=== PATIENT | male | born 1950 | race Caucasian/White ===

== ENCOUNTER 2020-08-12 05:24 | Observation (INO) | payer MEDICARE ==
[~2020-08-12] VITALS: Ht 188 cm; Wt 116.1 kg
[~2020-08-12 05:24] MED LIST: ASPIRIN81 MG PO; ATORVASTATIN CA40 MG PO; AVASTIN25 MG/1 ML; IMURAN50 MG PO; METOPROLOL SUCC50 MG PO; MULTI-VITAMIN1 EACH; MYRBETRIQ50 MG PO; SYNTHROID125 MCG PO; VITAMIN D3 COM1 EACH PO
[2020-08-12] MEDS ORDERED: CEFAZOLIN SOD 1 GM/NS 50ML 100 ML IV ONE (06:00)
[2020-08-12] MEDS ORDERED: SODIUM CHLORIDE 0.9% 500ML 500 ML ONE (06:22)
[2020-08-12] MEDS ORDERED: VANCOMYCIN HCL 1,000 MG ONE (06:22)
[2020-08-12] MEDS ORDERED: LIDOCAINE 1% W/EPINEPHRINE 20 ML VIAL ONE (06:22)
[2020-08-12] MEDS ORDERED: TRANEXAMIC ACID 1,000 MG/10 ML ML ONE (06:23)
[2020-08-12 06:39] LABS: BLOOD UREA NITROGEN 8 mg/dL (7-26); BUN/CREATININE RATIO 10 (6-25); CALCIUM 9.3 mg/dL (8.4-10.2); CARBON DIOXIDE 28 mmol/L (22-29); CHLORIDE 107 mmol/L (98-107); CREATININE, SERUM 0.79 mg/dL (0.72-1.25); EST GLOMERULAR FILTRATION RATE > 60 ML/MIN (60-); GLUCOSE 110 mg/dL (74-118); SODIUM 141 mmol/L (136-145)
[2020-08-12] MEDS ORDERED: ACETAMINOPHEN 650 MG SUPP PR PRN (08:30)
[2020-08-12] MEDS ORDERED: ZOLPIDEM TARTRATE 5 MG TAB PO PRN (08:30)
[2020-08-12] MEDS ORDERED: HYDROCODONE/APAP 7.5MG-325MG 1 EA TAB PO PRN (08:30)
[2020-08-12] MEDS ORDERED: DOCUSATE SODIUM 100 MG CAP PO PRN (08:30)
[2020-08-12] MEDS ORDERED: KETOROLAC TROMETHAMINE 30 MG/ML VIAL IV PRN (08:30)
[2020-08-12] MEDS ORDERED: DIPHENHYDRAMINE HCL INJ 50 MG/ML VIAL IV PRN (08:30)
[2020-08-12] MEDS ORDERED: ONDANSETRON HCL INJ 2MG/ML 2ML 2 MG/ML VIAL IV PRN (08:30)
[2020-08-12] MEDS ORDERED: FENTANYL CITRATE/PF 100MCG/2 ML INJ ONE ×2 (08:47→11:29)
--- NOTE | 2020-08-12 08:59 | Operative Report ---
DATE OF PROCEDURE: 08/12/2020 SURGEON: Bishop Carpenter MD AIX ARCHITECT: Zack Gallegos PA-C PREOPERATIVE DIAGNOSIS: Osteoarthritis, left shoulder. POSTOPERATIVE DIAGNOSIS: Osteoarthritis, left shoulder. PROCEDURE: Left shoulder hemiarthroplasty. INDICATIONS: The patient is a 70-year-old gentleman with advanced osteoarthritis of his left shoulder. The findings and options have been discussed. We plan on a left shoulder hemiarthroplasty. The risks and benefits of the procedure have been explained. Realistic expectations have been stressed. All of his questions have been answered. He states he understands and wishes to proceed. PROCEDURE IN DETAIL: The patient was brought to the operating room and placed under general anesthetic. He received a regional block, prophylactic antibiotics and tranexamic acid in the holding area. He was positioned in the beach chair position on the shoulder table. His left upper extremity was prepped and draped in a sterile manner. A 10 mL of 2% lidocaine with epinephrine was injected into the axillary fold. The incision was made. The deltopectoral interval was identified. Care was taken to avoid injury to the cephalic vein. This was preserved throughout the case. The proximal 1 cm of the pectoralis was released. The short head of the biceps was identified and a deep self-retaining Cleary Foreman retractor was placed. The inferior leash of vessels was ligated. The subscapularis/capsular complex was then released approximately 1 cm medial to the lesser tuberosity. This was carried up into the rotator interval. The biceps tendon appeared to be intact but was severely frayed. There was notable synovitis that extended down into the bicipital groove and into the sheath. The synovitis was excised. Bone fragment was noted to be in at the tendon sheath. The shoulder was gradually brought out into external rotation to expose the humeral head. Complete loss of articular cartilage was noted. A curved osteotome was used to remove the anterior and inferior osteophytes and identify anatomic landmarks. An oscillating saw was used to resect the humeral head. This was noted to be 52 mm in diameter. A taper pin reamer was then used to establish entry to the humeral canal. This was gently broached up to 14 mm. DePuy global 14 mm stem was then broached and impacted. Trial reductions were performed. I elected to use a 52 mm x 18 mm humeral head. This had good fill of the joint and stability in an AP and lateral direction. The trial implants were removed. The shoulder was thoroughly irrigated with sterile saline. Once again, the rotator cuff tendon integrity was inspected and noted to be intact. The stem was seated. A 52 mm x 18 mm humeral head was impacted into place. A final reduction was performed. The hip was further irrigated. Care was taken to repair the subscapularis capsule complex. This was done with interrupted #1 Ethibond and carried up into the rotator interval. Nice stability was felt to be obtained. A 500 mg of vancomycin powder was then sprinkled into the wound. The retractor was removed. The cephalic vein remained intact. The skin was closed with subcuticular Vicryl and shon. A sterile bandage was applied. He was extubated and transported to the recovery room in stable condition. Estimated blood loss was 50 mL. At the end of the procedure, all needle and sponge counts were correct. Bishop Carpenter MD DR/CHIQUITA /[id number]
--- OUTSIDE RECORDS SUMMARY | 2020-08-12 09:16 | XMS REPORT | Clinical Summary ---
Author Author [facility] Organization [facility] Address Unknown Phone Unavailable Care Team Providers Care Business Rules Analyst Name Role Phone Ganga Irvin DO PCP [phone] Allergies No Known Active Allergies Medications End Date Status Medication Sig Dispensed Refills Start Date Active azaTHIOprine (IMURAN) 100 Take 100 mg 0 mg tablet by mouth daily. Active levothyroxine (SYNTHROID) Take 125 mcg 0 125 mcg tablet by mouth daily. Active mirabegron (Myrbetriq) 50 Take 50 mg by 0 mg tablet extended mouth daily. release 24 hr 07/03/2021 Active atorvastatin (LIPITOR) 40 Take 1 tablet 90 tablet 2 mg tabletIndications: (40 mg total) 0 Mixed hyperlipidemia by mouth daily. Active metoprolol succinate XL Take 1 tablet 90 tablet 2 (TOPROL-XL) 50 mg 24 hr (50 mg total) 0 tablet by mouth daily. 11/29/2019 Discontinued (Reorder) atorvastatin (LIPITOR) 20 Take 20 mg by 0 MG tablet mouth daily. Default OP ins 11/29/2019 Discontinued (Reorder) metoprolol succinate XL Take 50 mg by 0 (TOPROL-XL) 50 mg 24 hr mouth daily. tablet 11/29/2019 Discontinued (Reorder) atorvastatin (LIPITOR) 20 Take 1 tablet 90 tablet 2 MG tablet (20 mg total) 0 by mouth daily. Default OP ins 07/03/2020 Discontinued (Reorder) metoprolol succinate XL Take 1 tablet 90 tablet 2 (TOPROL-XL) 50 mg 24 hr (50 mg total) 0 tablet by mouth daily. 07/03/2020 Discontinued atorvastatin (LIPITOR) 20 Take 1 tablet 90 tablet 2 MG tablet (20 mg total) 0 by mouth daily. Default OP ins Active Problems Problem Noted Date Essential hypertension 07/04/2019 Mixed hyperlipidemia 07/04/2019 Type 2 diabetes mellitus without complication, withou t long-term current 07/04/2019 use of insulin Heart murmur 07/04/2019 Encounters Care Team Description Date Type Specialty Andrzej Mancia MD Essential hypertension (Primary Dx); Heart murmur; Type 2 diabetes mellitus without complication, without long-term current use of insulin (HCC); Mixed hyperlipidemia; Preoperative cardiovascular examination left shoulder surgery 07/03/2020 Office Visit Cardiology Anahi Bueno MA Med Refill 07/03/2020 Refill Cardiology 07/03/2020 Travel Anahi Bueno MA Results 01/15/2020 Telephone Cardiology Anahi Bueno MA Results 01/15/2020 Telephone Cardiology Andrzej Mancia MD call back 01/08/2020 Telephone Cardiology Anahi Bueno MA Results 01/08/2020 Telephone Cardiology Anahi Bueno MA Heart murmur (Primary Dx); Type 2 diabetes mellitus without complication, without long-term current use of insulin (HCC); Mixed hyperlipidemia; Acquired hypothyroidism 01/03/2020 Orders Only Cardiology Andrzej Mancia MD Heart murmur (Primary Dx); Essential hypertension; Type 2 diabetes mellitus without complication, without long-term current use of insulin (HCC); Mixed hyperlipidemia; Acquired hypothyroidism 01/02/2020 Office Visit Cardiology 01/02/2020 Anahi Hathaway MA Heart murmur (Primary Dx); Nonrheumatic aortic valve stenosis; Essential hypertension; Stenosis of carotid artery, unspecified laterality 01/01/2020 Orders Only Cardiology Anahi Bueno MA Med Refill 11/29/2019 Refill Cardiology Sharmin Lopez MA Med Refill 11/29/2019 Telephone Cardiology after 08/12/2019 Surgical History Surgery Date Site/Laterality Comments HEMORRHOID SURGERY 09/13/1979 - 09/12/1980 RELEASE, CARPAL TUNNEL 09/13/1978 - Bilateral 09/12/1979 BRAIN TUMOR EXCISION 09/13/2002 - Right 09/12/2003 REPLACEMENT TOTAL KNEE 09/13/2002 - BILATERAL 09/12/2003 STENT 09/13/2005 - prox lad, artery 09/12/2006 GASTRIC BYPASS 09/13/2013 - 09/12/2014 COLONOSCOPY 09/13/2015 - 09/12/2016 EGD, INTRAOPERATIVE 09/13/2017 - 09/12/2018 NASAL/SINUS ENDOSCOPY Medical History Medical History Date Comments Sleep apnea, obstructive Type 2 diabetes mellitus (HCC) Hypertension Hyperlipidemia Family History Medical History Relation Name Comments Heart attack Brother 60's Heart attack Father Cancer Mother Relation Name Status Comments Brother Father Mother Social History Date Tobacco Use Types Packs/Day Years Used Former Smoker Smokeless Tobacco: Never Used Tobacco Cessation: Counseling Given: Yes Drinks/Week oz/Week Comments Alcohol Use rare Yes Sex Assigned at Date Recorded Male 12/26/2019 3:11 PM CDT Last Filed Vital Signs Reading Time Taken Comments Vital Sign 138/79 07/03/2020 1:01 PM CDT Blood Pressure 64 07/03/2020 1:01 PM CDT Pulse - - Temperature - - Respiratory Rate - - Oxygen Saturation - - Inhaled Oxygen Concentration 117 kg (258 lb) 07/03/2020 1:01 PM CDT Weight 182.9 cm (6') 07/03/2020 1:01 PM CDT Height 34.99 07/03/2020 1:01 PM CDT Body Mass Index Plan of Treatment Care Team Description Date [place] [id number] [address] [phone] 01/01/2021 Office Visit Cardiology Health Maintenance Due Date Last Done Comments DIABETES: RETINAL EYE 01/23/1958 EXAM DIABETIC FOOT EXAM 01/23/1958 COLONOSCOPY SCREENING 01/23/1998 SHINGLES VACCINES (#1) 01/23/1998 65+ PNEUMOCOCCAL VACCINE 01/23/2013 (1 of 1 - PPSV23) INFLUENZA VACCINE Completed 06/26/2020, 12/14/2019, 11/16/2019, Additional history exists Procedures Comments Procedure Name Priority Date/Time Associated Diag nosis ECG 12-LEAD Routine 07/03/2020 Essential hyper tension 1:07 PM CDT C-PEPTIDE, LC/MS/MS AND Routine 01/04/2020 IR SCORE 8:17 AM CDT INSULIN, INTACT, LC/MS/MS Routine 01/04/2020 8:17 AM CDT THYROID PANEL WITH TSH Routine 01/04/2020 8:17 AM CDT CARDIO IQ(R) ADVANCED Routine 01/04/2020 Mixed hy perlipidemia LIPID PANEL AND 8:17 AM CDT INFLAMMATION PANEL US CAROTID DUPLEX Routine 01/02/2020 Stenosis of carotid BILATERAL 1:47 PM CDT artery, unspecified laterality TTE COMPLETE, WO Routine 01/02/2020 Heart murmur CONTRAST, W DOPPLER 1:30 PM CDT Nonrheumatic aort ic valve (89471) stenosis Essential hypertension ECG 12-LEAD Routine 01/02/2020 Heart murmur 1:21 PM CDT after 08/12/2019 Results * ECG 12 lead (07/03/2020 1:07 PM CDT) Only the most recent of 2 results within the time period is included. Ventricular 62 [facility] rate Atrial rate 62 [facility] NH interval 190 [facility] QRSD interval 102 [facility] QT interval 396 [facility] QTC interval 401 [facility] P axis 1 43 [facility] QRS axis 1 16 [facility] T wave axis 40 [facility] EKG impression Normal sinus rhythm-Normal [facility] ECG-In automated comparison with ECG of 02-JAN-2020 13:21,-No significant change was found- Specimen Narrative Performed At This result has an attachment that is n ot available. Performing Organization Address City/State/ZIP Code P jake Number [facility] MUSE [address] [place] [address] * C-peptide, LC/MS/MS and IR score (01/04/2020 8:17 AM CDT) C-peptide 1.77 0.68 - 2.16 ng/mL [facility] Insulin 29 < OR = 66 [facility] resistance Comment: DIAGNOSTICS/RACQUEL score Insulin Sensitive < 33; [facility] Impaired Insulin Sensitivity 33-66; Insulin Resistant >66 A score below 33 is optimal. The insulin resistance score correlates with steady state glucose levels achieved during an insulin suppression test, a standard research test for insulin resistance. The score is based on insulin and C-peptide results (João F, Isidro D, Jorge FIGUEROA, et al. Insulin resistance probability scores for apparently healthy individuals. J Endocr Soc. In press). For additional information, please refer to http://imbookin ([place]).CityAds Media/faq/QPX182 (This link is being provided for informational/educational purposes only.) This test was developed and its analytical performance characteristics have been determined by [facility]. It has not been cleared or approved by FDA. This assay has been validated pursuant to the CLIA regulations and is used for clinical purposes. Specimen Narrative Performed At FASTING:YES [facility] FASTING: YES Resulting Agency Comment Performing Organization Information: Site ID: [id number] Name: [facility], Address: [address] [place] [id number] Director: Deepa Glover MD,PhD,KOURTNEY Performing Organization Address City/State/ZIP Code P jake Number [facility]/SUN [address] [place] [address], [place] [phone] [facility] [id number] * INSULIN, INTACT, LC/MS/MS (01/04/2020 8:17 AM CDT) [facility] Signature Insulin,intact, 8 < OR = 16 uIU/mL [facility] lc/ms/ms Comment: DIAGNOSTICS/RACQUEL Insulin concentration can be [facility] converted to pmol/L by applying the conversion factor: 1 uIU/mL = 5.97 pmol/L For additional information, please refer to http://education.CityA[employer] Media/faq/ZWO975 (This link is being provided for informational/educational purposes only.) This test was developed and its analytical performance characteristics have been determined by [facility]. It has not been cleared or approved by [facility]. This assay has been validated pursuant to the CLIA regulations and is used for clinical purposes. Specimen Narrative Performed At FASTING:YES [facility] FASTING: YES Resulting Agency Comment Performing Organization Information: Site ID: [id number] Name: [facility], Address: [address] [place] [id number] Director: Deepa Glover MD,PhD,KOURTNEY Performing Organization Address City/State/ZIP Code P jake Number [facility]SUN [id number] [address] [phone] [facility] [id number] * Cardio IQ(R) advanced lipid panel and inflammation panel (01/04/2020 8:17 AM CDT) Cholesterol, 174 <200 mg/dL [facility] total [facility] HDL cholesterol 62 > OR = 40 mg/dL [facility] Triglycerides 157 (H) <150 mg/dL [facility] LDL cholesterol 87 <100 mg/dL (calc) [facility] calculated Comment: [facility]NOSTICS/RACQUEL Desirable range <100 mg/dL for [facility] primary prevention; <70 mg/dL for patients with CHD or diabetic patients with > or = 2 CHD risk factors. LDL-C is now calculated using the Patrice calculation, which is a validated novel method providing better accuracy than the Friedewald equation in the estimation of LDL-C. Ilia DEL VALLE et al. FREDY. 2013;310(19): 9496-7724 For additional information, please refer to http://education.NexMed.com/faq/FSY099 (This link is being provided for informational/educational purposes only.) Cholesterol/HDL 2.8 <5.0 calc [facility] ratio DIAGNOSTICS/RACQUEL [facility] Non-HDL 112 <130 mg/dL (calc) [facility] cholesterol Comment: DIAGNOSTICS/RACQUEL For patients with diabetes [facility] plus 1 major ASCVD risk factor, treating to a non-HDL-C goal of <100 mg/dL (LDL-C of <70 mg/dL) is considered a therapeutic option. LDL particle 1,159 (H) <1,138 nmol/L [facility] number Comment: DIAGNOSTICS/RACQUEL Risk: Optimal <1138; Moderate [facility] 5916-6967; High >1409 LDL small 189 (H) <142 nmol/L [facility] Comment: [facility]NOSTICS/RACQUEL Risk: Optimal <142; Moderate [facility] 142-219; High >219 LDL medium 239 (H) <215 nmol/L [facility] Comment: [facility]STICS/RACQUEL Risk: Optimal <215; Moderate [facility] 215-301; High >301 HDL large 5,399 (L) >6,729 nmol/L [facility] Comment: [facility]NOSTICS/RACQUEL Risk: Optimal >6729; Moderate [facility] 0928-2618; High <5353 LDL density B (A) A Pattern [facility] pattern Comment: [facility]QUEL Risk: Optimal Pattern A; High [facility] Pattern B LDL peak size 215.6 (L) >222.9 Angstrom [facility] Comment: [facility]AGNOSTICS/RACQUEL Risk: Optimal >222.9; Moderate [facility] 222.9-217.4; High <217.4 Adult cardiovascular event risk category cut points (optimal, moderate, high) are based on an adult [place] reference population plus two large cohort study populations. Association between lipoprotein subfractions and cardiovascular events is based on Jeevanu et al. ATVB. 2009;29:1975. For additional information, please refer to http://education.NexMed.com/faq/NWV241 (This link is being provided for informational/educational purposes only.) This test was developed and its analytical performance characteristics have been determined by [facility]. It has not been cleared or approved by FDA. This assay has been validated pursuant to the CLIA regulations and is used for clinical purposes. Apolipoprotein 81 mg/dL [facility] B Comment: [facility]NOSTICS/RACQUEL Reference Range: <90 [facility] Risk Category: Optimal <90 Moderate 90-119 High > or = 120 Cardiovascular event risk category cut points (optimal, moderate, high) are based on National Lipid Association recommendations - Clarisa TA et al. J of Clin Lipid. 2015;9:129-169 and Guadalupe ALATORRE et al. Endocr Pract. 2017;23(Suppl 2):1-87. Lipoprotein (a) 48 <75 nmol/L [facility] Comment: DIAGNOSTICS/RACQUEL Risk: Optimal < 75 nmol/L; [facility] Moderate 75-125 nmol/L; High > 125 nmol/L Cardiovascular event risk category cut points (optimal, moderate, high) are based on Carina LegerJACC 2017;69:692-711. CRP, high 0.7 mg/L [facility] sensitivity Comment: DIAGNOSTICS/RACQUEL Optimal <1.0 [facility] Guadalupe ALATORRE et al. Endocr Pract.2017;23(Suppl 2):1-87. For Ages > 17 Years: hs-CRP mg/L Risk According to AHA/CDC Guidelines ------ <1.0 Lower Relative Cardiovascular Risk. 1.0-3.0 Average Relative Cardiovascular Risk 3.1-10.0 Higher Relative Cardiovascular Risk. Consider retesting in 1 to 2 weeks to exclude a benign transient elevation in the baseline CRP value secondary to infection or inflammation. >10.0 Persistent elevations upon retesting, may be associated with infection and inflammation. Lp-PLA2 98 <=123 nmol/min/mL [facility] Comment: DIAGNOSTICS/RACQUEL Risk: Optimal <=123 [facility] nmol/min/mL; High >123 nmol/min/mL. This test was developed and its analytical performance characteristics have been determined by [facility]. It has not been cleared or approved by FDA. This assay has been validated pursuant to the CLIA regulations and is used for clinical purposes. Specimen Narrative Performed At FASTING:YES [facility] FASTING: YES Resulting Agency Comment Performing Organization Information: Site ID: [id number] Name: [facility], Address: [address] [place] [phone] Director: Deepa Glover MD,PhD,KOURTNEY Performing Organization Address City/[facility] Code P jake Number [facility]/SUN[address] [phone] [facility] [address] * Thyroid Panel With TSH (01/04/2020 8:17 AM CDT) T3 uptake 26 22 - 35 % [facility] T4 8.8 4.9 - 10.5 mcg/dL [facility] Free T4 index 2.3 1.4 - 3.8 [facility] [place] TSH 1.31 0.40 - 4.50 mIU/L [employer] [facility] [employer] [facility] Specimen Narrative Performed At FASTING:YES [facility] FASTING: YES Resulting Agency Comment Performing Organization Information: Site ID: [id number] Name: [facility] Address: [address] [place] [phone] Director: Flynn Handley Performing Organization Address City/[facility]/ZIP Code P jake Number [facility] [address] [phone] * carotid duplex (01/02/2020 1:47 PM CDT) [facility] Signature L CCA Prox 29.03 cm/s [facility] L CCA Prox 119.55 cm/s [facility] R CCA Mid 18.14 cm/s [facility] R CCA Mid 69.76 cm/s [facility] L CCA Mid 24.18 cm/s [facility] L CCA Mid 102.32 cm/s [facility] L ECA Prox 18.89 cm/s [facility] L ECA Prox 121.93 cm/s [facility] R ECA Prox 17.13 cm/s [facility] Rt ECA Prox PSV 104.35 cm/s [facility] L ICA Prox 20.93 cm/s [facility] L ICA Prox 68.37 cm/s [facility] R ICA Prox 23.36 cm/s [facility] R ICA Prox 73.20 cm/s [facility] L ICA/CCA Ratio 0.71 [facility] R ICA/CCA Ratio 0.93 [facility] R CCA Prox 18.14 cm/s [facility] R CCA Prox 94.88 cm/s [facility] R Car Bulb 55.81 cm/s [facility] R CCA Dist 20.93 cm/s [facility] R CCA Dist 75.34 cm/s [facility] L ICA Dist 20.93 cm/s [facility] L ICA DIST 54.42 cm/s [facility] LT IC MID EDV 22.32 cm/s [facility] Lt ICA MID PSV 64.18 cm/s [facility] R ICA Dist 29.77 cm/s [facility] R ICA Mid 16.12 cm/s [facility] Rt ICA MID PSV 48.37 cm/s [facility] Lt IC/CC 71.19 cm/s [facility] L Car Bulb 15.35 cm/s [facility] L Car Bulb 85.11 cm/s [facility] R Car Bulb 12.56 cm/s [facility] L CCA Dist 26.05 cm/s [facility] L CCA Dist 111.62 cm/s [facility] L ICA Mid 22.32 cm/s [facility] L ICA Mid 64.18 cm/s [facility] Rt ICA Distal 29.77 cm/s [facility] EDV R ICA Dist 88.06 cm/s [facility] R ICA Mid 48.37 cm/s [facility] L Vert Art 14.16 cm/s [facility] L Vert Art 44.65 cm/s [facility] R Vert Art 65.73 cm/s [facility] Rt Vertebral 65.73 [facility] Artery RI Pt Size 182.88 [facility] Pt Wt 112.94 [facility] L Sub Art 0.00 cm/s [facility] R ECA Prox 104.00 cm/s [facility] L Sub Art 132 cm/s [facility] R Sub Art 76.00 cm/s [facility] Specimen Narrative Performed At [facility] There is mild atherosclerotic plaque noted throughout both carotid arteries without any hemodynamic compro mise bilaterally. Antegrade flow bilateral vertebral a rteries. Performing Organization Address City/State/ZIP Code P jake Number [facility] [address] [place] [address] * Transthoracic Echocardiogram Complete, (w Contrast, Strain and 3D if needed) (01/02/2020 1:30 PM CDT) Ao Root 3.41 cm [facility] Diameter AoV Area, Vmax 1.59 cm2 [facility] AoV Area, VTI 1.51 cm2 [facility] AoV Mean PG 22.08 mmHg [facility] AoV Peak PG 35.01 mmHg [facility] AoV Vmax 3.08 m/s [facility] AoV VTI 0.76 m [facility] IVS,d 1.31 cm [facility] Left Atrium 4.44 cm [facility] Dimension Anterior LV,d 5.17 cm [facility] LV EF,2D 72.67 % [facility] LV,s 3.35 cm [facility] LVOT Diam,S 2.36 cm [facility] LVOT Vmax 1.12 m/s [facility] LVOT VTI 0.25 m [facility] LVPWD,d 1.25 cm [facility] PV Mean Grad 2.09 mmHg [facility] PV Pk Grad 2.90 mmHg [facility] PV VMAX 0.85 m/s [facility] PV VTI 0.22 m [facility] RVOT Vmax 0.67 m/s [facility] RVSP (TR) 31.03 mmHg [facility] TR Vpeak 2.55 mm/s [facility] MV E A ratio 0.76 [facility] TR pk grad 26 mmHg [facility] PV Vmn 0.72 [facility] MR Vmax 4.42 m/s [facility] E wave 311.41 msec [facility] decelartion time MV Peak A Aaron 0.93 m/s [facility] MV Peak E Aaron 0.71 m/s [facility] MV stenosis 90.31 ms [facility] pressure 1/2 time AV LVOT peak 5.05 mmHg [facility] gradient Ascending aorta 3.47 cm [facility] RVSP 31.03 mmHg [facility] Ao Root 3.41 cm [facility] Diameter MV mean 1.73 mmHg [facility] gradient LV SYS VOL 45.87 ml [facility] LV [place] VOL 127.59 ml [facility] LV SI Teich 2D 34.93 ml/m2 [facility] LV SV Teich 2D 81.73 ml [facility] LVOT SI 52.74 ml/m2 [facility] MR peak grad 4.69 mmHg [facility] MV Vmax 1.08 m [facility] MV VTI Tips 0.37 m [facility] RVOT pk grad 1.79 mmHg [facility] AoV Vmn 2.30 [facility] LVOT Vmn 0.77 [facility] Pt Size 182.88 [facility] Pt Wt 112.94 [facility] LVOT mean grad 2.62 mmHg [facility] RVOT mean grad 1.01 mmHg [facility] RVOT Vmn 0.49 m/s [facility] RVOT VTI 0.15 m [facility] LV SI Cube 2D 42.83 ml/m2 [facility] LV SV Cube 2D 100.23 ml [facility] LV vol s cube 37.69 ml [facility] 2D MV Decel slope 2.27 m/s2 [facility] LA Vol MOD A4C 80.68 ml [facility] Velocity Ratio 0.36 m/s [facility] (V1/V2) EF 64.05 % [facility] MV valve area p 2.44 cm2 [facility] 1/2 method E/A ratio 0.76 [facility] LVOT area 4.37 cm2 [facility] Specimen Narrative Performed At [facility] Left Ventricular ejection fraction i s 55 - 60%. Left ventricular systolic function i s normal. There is mild left ventricular myrtle ntric hypertrophy. Spectral Doppler shows impaired rela xation pattern of left ventricular diastolic filling. Left atrium size is mildly dilated. Moderate aortic valve stenosis. The aortic valve mean gradient is 24.65 mmHg. Mild tricuspid valve regurgitation. RVSP is 31.03 mmHg. Aortic root is normal. No pericardial effusion seen. No previous study for comparison. Performing Organization Address City/State/ZIP Code P jake Number [facility] [address] [place] [address] after 08/12/2019 Insurance Type Payer Benefit Subscriber ID Effective Phone Address Plan / Dates Group PPO HUMANA MEDICARE HUMANA [id number] [id number] MEDICARE resent PPO/PFFS/E RS [facility] Advance Directives For more information, please contact: [phone] Patient Sociology Faculty Member Explanation Type Date Recorded Advance Directives, Living Will and Medical Power of Electrical And Instrumentation Manager
--- OUTSIDE RECORDS SUMMARY | 2020-08-12 09:16 | XMS REPORT | Continuity of Care Document ---
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) Active Prob [place] 11/11/2019 [facility] Hearing loss (finding) Resolved Problem 11/11/2019 [facility] Hemorrhoids (disorder) Resolved Problem 11/11/2019 [facility] Hypertensive disorder, systemic arterial (disorder) Resolved Problem 11/11/2019 [facility] Hypothyroidism (disorder) Reso lved Problem [facility] Increased frequency of urination (finding) Active Problem 11/11/2019 [facility] Neoplasm of brain (disorder) R esolved Problem [facility] Sleep apnea (finding) Resolved Problem 11/11/2019 [facility] Viral hepatitis, type A (disorder) Resolved Problem [facility] Medications Medication Details Route Status Patient Instructions Ordering Provider Order Date Source 24 HR mirabegron 50 MG Extended Release Tablet [Myrbetriq] 50 mg = 1 tab, PO, Daily, # 90 tab, 3 Re fill(s), Pharmacy: [facility]/pharmacy #[id number] Active 11/08/2019 [facility] 24 HR mirabegron 50 MG Extended Release Tablet [Myrbetriq] 50 mg = 1 tab, PO, Daily, # 90 tab, 3 Re fill(s), Pharmacy: [facility] Active 08/24/2019 [facility] metoprolol 50 mg oral tablet, extended release 0 Refill(s) Active 07/18/2018 [facility] Flomax 0.4 mg, PO, Daily, 0 Re fill(s) No Longer Active 07/18/2018 [facility] Thyroxine PO, Daily, 0 Refill( s) Active 07/18/2018 [facility] Azathioprine 0 Refill(s) Active 07/18/2018 [facility] Aspirin 0 Refill(s) Active 07/18/2018 [facility] atorvastatin PO, Daily, 0 Refi ll(s) Active 07/18/2018 [facility] Allergies, Adverse Reactions, Alerts No Known Medication Allergies Immunizations No Data Provided for This Section Results No Data Provided for This Section Pathology Reports No Data Provided for This Section Diagnostic Reports Report Value Date Source Brain w/wo contrast MRI Patien wong Name: RENETTA ORELLANA : 1950; Age: 68 years y/o Male MR: [id number] Study: Brain w/wo contrast MRI, IAC protocol 02/11/2018 1:48 PM CDT Ordering Physician: Diana Juárez MD Clinical Indication: D33.3 Benign neoplasm of cranial nerves - D33.3 Benign neoplasm of cranial nerves; Comparison: None TECHNIQUE : Multiplanar imaging of the brain was obtained both prior to and after uncomplicated IV administration of 20 cc Dotarem. High-resolution pre and postcontrast multiplanar images of the internal auditory canals also performed. FINDINGS: BRAIN PARENCHYMA: There is minimal diffuse cerebral atrophy, including hippocampal and midbrain volumes. There are minimal punctate T2 hyperintensities involving the cerebral white matter without enhancement, blooming artifact nor diffusion restriction. These are nonspecific but likely represent small vessel ischemic change . No restricted diffusion is identified. There is no mass effect or midline shift. There is no extra-axial fluid collection or intraparenchymal hemorrhage. There is no abnormal enhancement. CEREBELLOPONTINE REGIONS AND SKULL BASE: There is been a right canal wall up partial mastoidectomy/retrosigmoid approach with fluid in the mastoid tip. There appears to be an arachnoid cyst or adhesion, just posterior to porous acousticus with forward bending of cisternal portions of right cranial nerve VII and VIII. The right cochlea is difficult to visualize especially on the middle and apical turns. The semicircular canals are not well seen and appear to been resected. As better seen on whole brain images given the longer delays, in the region of the resection cavity through the petrous ridge, there is an area of enhancement measuring 12 x 30 x 9 mm in sagittal, oblique anterior posterior, and transverse dimensions, respectively along the course of the petrous ridge and the resection cavity. Left internal auditory canal is unremarkable. There is thin bone covering the left superior semicircular canal, so that dehiscence cannot be excluded. VENTRICLES/SULCI/CISTERNS: The ventricles are normal in size and configuration. The basal cisterns are patent. VISUALIZED VESSELS: Major intracranial flow voids are preserved. ORBITS, VISUALIZED PARANASAL SINUSES: Paranasal sinuses are clear. . No orbital pathology is seen. Moderate leftward nasal spurring of 4 mm and deviation of 4 mm contacts and remodels the left inferior turbinate. This is a potential source of headaches in some patients. IMPRESSION: 1. Postoperative changes involving the r ight petrous ridge/mastoids, with possible resection of the semicircular canals and poor visualization of the right cochlea, probably related to history of cochlear implant. The predominantly linear enhancement in the postoperative field is probably postoperative in nature though especially without priors for comparison, difficult to exclude small areas of recurrence is superimposed. Arachnoid cyst or scarring causing for slight bending of the cisternal portions of cranial nerves VII and VIII as well. Consider follow-up. 2. Right mastoid tip effusion probably d ue to postoperative change. Cannot exclude mastoiditis. 3. Cannot exclude left superior semicirc ular canal dehiscence. If there is a history of sensorineural hearing loss or vertigo in response to Valsalva/loud noises, consider temporal bone CT. 4. Minimal probable small vessel ischemi c changes 5. Nasal septal deviation/spurring is po tential source of headaches in some patients. 02/11/2018 [facility] Consultation Notes No Data Provided for This Section Discharge Summaries No Data Provided for This Section History and Physicals No Data Provided for This Section Vital Signs Vital Sign Value Date Comments Source Heart Rate 66 07/27/2018 [facility] Height 182.88 cm 07/27/2018 [facility] BMI Calculated 33.59 07/27/2018 [facility] Weight 112.33 07/27/2018 [facility] Systolic (mm Hg) 122 07/27/2018 [facility] Diastolic (mm Hg) 76 07/27/2018 [facility] Encounters Location Location Details Encounter Type Encounter Number Reason For Visit Attending Provider ADM Date DC Date Status Source [facility] Out[facility] - [facility] Di[facility] [id number] Wednesday02/11/2018 02/12/2018 [facility] Outpatient [id number] ELVER SMALLWOOD 07/27/2018 Active [facility] Urology [facility] Outpatient [id number] Elver Smallwood 07/27/2018 07/28/2018 [facility] Outpatient [id number] MAGDA VILLARREAL 07/27/2019 [facility] [id number] Ganga Irvin 07/27/2019 07/27/2019 [facility] Outpatient [id number] Elver Bobt 08/24/2019 Active [facility] Urology [facility] Outpatient [id number] Elver Bobt 08/24/2019 08/25/2019 [facility] Outpatient [id number] Elver Bobt 11/08/2019 Active [facility] Outpatient [id number] Elver Bobt 11/08/2019 11/09/2019 [facility] Outpatient [id number] Elver Bobt 11/06/2020 Active [facility] Procedures Procedure Code Date Perfomer Comments Source Carpal tunnel release [id number] [facility] Colonoscopy [id number] [facility] Esophagogastroduodenoscopy [id number] [facility] Hemorrhoidectomy [id number] [facility] Knee joint operation [id number] [facility] Stent placement [id number] [facility] Assessment and Plan No Data Provided for This Section Plan of Care No Data Provided for This Section Social History Social History Date Source Social History TypeResponse Smoking Status Never smoker; Previous treatment: None; Exposure to Tobacco Smoke Unable to obtain; Cigarette Smoking Last 365 Days Unable to obtain; Reg Smoking Cessation Counseling No entered on: 11/08/19 11/08/2019 [facility] No data available for this section 02/12/2018 [facility] Holly Family History No Data Provided for This Section Advance Directives No Data Provided for This Section Functional Status No Data Provided for This Section
--- OUTSIDE RECORDS SUMMARY | 2020-08-12 09:17 | XMS REPORT | Continuity of Care Document ---
Author Author [facility] t Organization [facility] Address [address] [place] [address] Phone Unavailable Care Team Providers Care Supervisor Adult Education Name Role Phone AlbaroErnesto stewart DO PCP [phone] HITESH DE SANTIAGO Attphys Unavailable Gavino PIÑA, Jhoan Donnelly Attphys Anahi Bueno MA Attphys Unavailable Ladi Lopez MA Attphys Unavailable Hitesh Garner Attphys STUART TRAVIS Attphys Unavailable Wednesday, Heather Ortiz Attphys Payers Payer Name Policy Type Policy Number Effective Date Expiration Date S catalino TRUONGA MEDICAREHUMANA MEDICARE PPO/PFFS/ERS [id number] [id number] 2017 00:00:00 Robert Carlin Problems Condition Name Condition Details Condition Category Status Onset Date Resolution Date Last Treatment Date Treating Clinician Comments Source Essential hypertension Essential hypertension Disease Active 2019-07-04 00:00:[address] Mixed hyperlipidemia Mixed hyperlipidemia Disease Active 00:00:00 Robert Carlin Type 2 diabetes mellitus without complic ation, without long-term current use of insulin Type 2 diabetes mellitus without complic ation, without long-term current use of insulin Disease Active 2019-07-04 00:00:00 Robert Carlin Heart murmur Heart murmur Disease Active 2019-07-04 00:00:00 Robert Carlin 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 Active 01/07/2018 OPID [place] Diagnosis Active 2018-01-07 00:01:00 2018-02-11 13:18:00 M carltonridilcia Hinojosa Hearing loss (finding) Hear ing loss (finding) Resolved Problem 11/11/2019 Medical Group Problem Resolved 2019-11-11 01 :35:06 Regan Hinojosa Hemorrhoids (disorder) Hemo rrhoids (disorder) Resolved Problem 11/11/2019 Medical Group Problem Resolved 2019-11-11 01 :35:06 Regan Hinojosa Hypertensive disorder, systemic arterial (disorder) Hypertensive disorder, systemic arterial (disorder) Resolved Problem 11/11/2019 Medical Group Problem Resolved 2019-11-11 01:35:06 Regan Hinojosa Hypothyroidism (disorder) Hypo thyroidism (disorder) Resolved Problem 11/11/2019 Medical Group Problem Resolved 2019-11-11 01:35:06 Regan Hinojosa Neoplasm of brain (disorder) N eoplasm of brain (disorder) Resolved Problem 11/11/2019 Medical Group Problem Resolved 2019-11-11 01:35:06 Regan Hinojosa Sleep apnea (finding) Slee p apnea (finding) Resolved Problem 11/11/2019 Medical Group Problem Resolved 2019-11-11 01 :35:06 Regan Hinojosa Viral hepatitis, type A (disorder) Viral hepatitis, type A (disorder) Resolved Problem 11/11/2019 Medical Group Problem Resolved 2019-11-11 01:35:06 Regan Hinojosa Benign prostatic hypertroph with outflow obstruction ( disorder) 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) Active Problem 11/11/2019 [facility] Group Problem Active 2019-11-11 01: 35:06 Regan Hinojosa Increased frequency of urination (finding) Increased frequency of urination (finding) Active Problem 11/11/2019 Medical Group Problem Active 2019-11-11 01:35:06 Regan Hinojosa Allergies, Adverse Reactions, Alerts Allergy Name Allergy Type Status Severity Reaction(s) Onset Date Inacti ve Date Treating Clinician Comments Source No Known Allergies DA Active U 2015-02-01 00:00:00 [facility] Family History Family Member Diagnosis Comments Start Date Stop Date Source Natural brother Heart attack Robert Carlin Natural father Heart attack Robert Carlin Natural mother Cancer [facility] thodist Social History Social Habit Start Date Stop Date Quantity Comments Source Sex Assigned At M Lisbetmaverick Carlin Tobacco use and exposure 2020-07-03 00:00:00 2020-07-03 00:00:00 Neve r used Robert Carlin Alcohol intake 2020-07-03 00:00:00 2020-07-03 00:00:00 Current drinker of alcohol (finding) Robert Carlin Alcohol Comment 2019-07-04 00:00:00 2019-07-04 00:00:00 rare Robert Carlin Social History 2018-02-12 04:59:00 2018-02-12 04:59:00 [facility] Smoking Status Start Date Stop Date Source Former smoker 2020-07-03 00:00:00 2020-07-03 00:00:00 Robert Carlin Social History [facility] Medications Ordered Medication Name Filled Medication Name Start Date Stop Da te Current Medication? Ordering Clinician Indication Dosage Frequency Signature (SIG) Comments Components Source azaTHIOprine (IMURAN) 100 mg tablet 2020-07-03 12:50:15 Yes 100mg QD Take 100 mg by mouth daily. Robert telles levothyroxine (SYNTHROID) 125 mcg tablet 2020-07-03 12:50:15 Yes 125ug QD Take 125 mcg by mouth daily. Lisbet Carlin mirabegron (Myrbetriq) 50 mg tablet extended release 24 hr 2020-07-03 12:50:15 Yes 50mg QD Take 50 mg by mouth daily. Robert Carlin metoprolol succinate XL (TOPROL-XL) 50 mg 24 hr tablet 2020-07-03 00:00:00 Yes 50mg QD Take 1 tablet (50 mg total) by mouth moni ly. Robert Carlin atorvastatin (LIPITOR) 40 mg tablet 2020-07-03 00:00:0 0 2021-07-03 23:59:00 Yes Mixed hyperlipidemia 40mg QD Take 1 tablet ( 40 mg total) by mouth daily. Robert Carlin atorvastatin (LIPITOR) 20 MG tablet 2019-11-29 15:11:0 2 2019-11-29 00:00:00 No 20mg QD Take 20 mg by mouth daily. Default OP in s Robert Carlin metoprolol succinate XL (TOPROL-XL) 50 mg 24 hr tablet 2019-11-29 15:11:02 2019-11-29 00:00:00 No 50mg QD Take 50 mg by mouth daily. Robert Carlin metoprolol succinate XL (TOPROL-XL) 50 mg 24 hr tablet 2019-11-29 00:00:00 2020-07-03 00:00:00 No 50mg QD Take 1 tab let (50 mg total) by mouth daily. Robert Carlin atorvastatin (LIPITOR) 20 MG tablet 2019-11-29 00:00:0 0 2020-07-03 00:00:00 No 20mg QD Take 1 tablet (20 mg total) by mouth moni ly. Default OP ins Robert Carlin atorvastatin (LIPITOR) 20 MG tablet 2019-11-29 00:00:0 0 2019-11-29 00:00:00 No 20mg QD Take 1 tablet (20 mg total) by mouth moni ly. Default OP ins Robert Carlin 24 HR mirabegron 50 MG Extended Release Tablet [Myrbetriq] 2019-11-08 16:31:00 Yes 50 mg = 1 tab, PO, Daily, # 90 tab, 3 Refill(s), Pharmacy: [facility]/pharmacy #[id number] [facility] [place] 24 HR mirabegron 50 MG Extended Release Tablet [Myrbetriq] 2019-08-24 18:14:00 Yes 50 mg = 1 tab, PO, Daily, # 90 tab, 3 Refill(s), Pharmacy: [facility] Ashish metoprolol 50 mg oral tablet, extended release 2018-07-18 20:13: 00 Yes [facility] 2018-07-18 20:12:00 No 0.4 mg, PO, D aily, 0 Refill(s) [facility] Thyroxine 2018-07-18 20:12:00 Yes PO, Daily, 0 Refill(s) [facility] Azathioprine 2018-07-18 20:11:00 Yes 0 Refil l(s) [facility] Aspirin 2018-07-18 20:10:00 Yes 0 Refill(s) [facility] atorvastatin 2018-07-18 20:10:00 Yes PO, Moni ly, 0 Refill(s) [facility] Vital Signs Vital Name Observation Time Observation Value Comments Source Systolic blood pressure 2020-07-03 13:01:00 138 mm[Hg] [place] Diastolic blood pressure 2020-07-03 13:01:00 79 mm[Hg] Robert Clineist Heart rate 2020-07-03 13:01:00 64 /min Robert Carlin Body height 2020-07-03 13:01:00 182.9 cm Robert Carlin Body weight 2020-07-03 13:01:00 117.028 kg Robert Carlin BMI 2020-07-03 13:01:00 34.99 kg/m2 Robert Clineist Heart Rate 2018-07-27 20:20:00 [facility] [place] Height 2018-07-27 20:20:00 182.88 cm [facility] BMI Calculated 2018-07-27 20:20:00 Memori al [facility] Weight 2018-07-27 20:20:00 [facility] Systolic (mm Hg) 2018-07-27 20:20:00 Niranjan rial Ashish Diastolic (mm Hg) 2018-07-27 20:20:00 Mem orial [place] Procedures Procedure Date / Time Performed Performing Clinician Sour e ECG 12-LEAD 2020-07-03 13:07:[address] thodist CARDIO IQ(R) ADVANCED LIPID PANEL AND INFLAMMATION PANEL 202 08:17:00 Andrzej Mancia THYROID PANEL WITH TSH 2020-01-04 08:17:00 Andrzej Mancia INSULIN, INTACT, LC/MS/MS 2020-01-04 08:17:00 Andrzej Mancia C-PEPTIDE, LC/MS/MS AND IR SCORE 2020-01-04 08:17:00 Andrzej Mancia US CAROTID DUPLEX BILATERAL 2020-01-02 13:47:47 Andrzej Mancia TTE COMPLETE, WO CONTRAST, W DOPPLER ([id number]) 2020-01-02 13:3 0:00 Andrzej Mancia ECG 12-LEAD 2020-01-02 13:21:[address] thodist Carpal tunnel release [facility] H ermann [facility] Esophagogastroduoden[facility] Memor ial Ashish Hemorrhoidectomy [facility] n Knee joint operation [facility] rmann Stent placement [facility] Plan of Care Planned Activity Planned Date Details Comments Source Future Scheduled Test 2013-01-23 00:00:00 65+ PNEUMOCOCCAL V ACCINE (1 of 1 - PPSV23) [code = 65+ PNEUMOCOCCAL VACCINE (1 of 1 - PPSV23)] [facility] Future Scheduled Test 1998-01-23 00:00:00 COLONOSCOPY SCREEN ING [code = COLONOSCOPY SCREENING] [facility] Future Scheduled Test 1998-01-23 00:00:00 SHINGLES VACCINES (#1) [code = SHINGLES VACCINES (#1)] [facility] Future Scheduled Test 1958-01-23 00:00:00 DIABETES: RETINAL EYE EXAM [code = DIABETES: RETINAL EYE EXAM] [facility] Future Scheduled Test 1960-01-23 00:00:00 DIABETIC FOOT EXAM [code = DIABETIC FOOT EXAM] [place] Mandaen Encounters Start Date/Time End Date/Time [facility] ID Source 2020-07-03 00:00:00 2020-07-03 00:00:00 Outpatient GAVINO ANDRZEJ [facility] [id number] [place] Mandaen 2020-01-02 00:00:00 2020-01-02 00:00:00 Outpatient [facility] [id number] [facility] 2020-01-02 00:00:00 2020-01-02 00:00:00 Outpatient ANDRZEJ MANCIA [facility] [id number] [facility] 2020-01-02 00:00:00 2020-01-02 00:00:00 Outpatient GAVINO ANDRZEJ [facility] [id number] [facility] 2019-11-08 09:45:00 2019-11-08 23:59:59 Outpatient Sabino Garner [facility] [id number] 2019-08-24 11:15:00 2019-08-24 23:59:59 Outpatient Sabino Garner [facility] [id number] 2019-07-27 10:00:00 2019-07-27 10:00:00 Outpatient Sabino Garner [facility] [id number] 2019-07-06 00:00:00 2019-07-06 00:00:00 Outpatient CHRISTINA TRAVIS [facility] [id number] [facility] 2019-07-06 00:00:00 2019-07-06 00:00:00 Outpatient CHRISTINA TRAVIS [facility] [id number] [facility] 2018-07-27 14:30:00 2018-07-27 23:59:59 Outpatient Sabino Garner [facility] [id number] 2018-02-11 13:09:00 2018-02-11 23:59:00 Outpatient Diana Juárez [facility] [id number] Results Test Description Test Time Test Comments Results Result Comments Source CHEST 2 VIEWS 2020-07-11 12:12:00 [facility] CENTER[facility]: RENETTA ORELLANA : 1950 Sex: M [place] [address] Patient Name: RENETTA ORELLANA MR #: [id number] : 1950 Age/Sex: 70/M Req #: [id number] Adm Physician: Ordered by: HITESH DE SANTIAGO MD Report #: [id number] Location: OR Room/Bed: Procedure: [id number] DX/CHEST 2 VIEWS Exam Date: 07/11/20 Exam Time: 1130 REPORT STATUS: Signed Chest, 2 views, 07/11/2020. History: Preop, shoulder surgery. Comparison: None available. Findings: The cardiomediastinal silhouette and pulmonary vasculature are within normal limits. A calcified granuloma is noted in the right lung base. The lungs are otherwise clear without evidence of consolidation or pleural effusion.Degenerative changes are present throughout the thoracic spine. There are no acute osseous or soft tissue abnormalities. Impression: No acute cardiopulmonary abnormality. Signed by: Niranjan Leonardo on 07/11/2020 12:13 PM Dictated By: NIRANJAN LEONARDO MD [id number] Transcribed By: MICHAELLE on 07/11/20 1213 COPY TO: HITESH DE SANTIAGO MD ECG 12 lead 2020-07-04 19:12:23 Test Item Ventricular rate (test code = 253) 62 Atrial rate (test code = 255) 62 MD interval (test code = 266) 190 QRSD interval (test code = 260) 102 QT interval (test code = 264) 396 QTC interval (test code = 265) 401 P axis 1 (test code = 267) 43 QRS axis 1 (test code = 268) 16 T wave axis (test code = 270) 40 EKG impression (test code = 273) Normal sinus rhythm-N ormal ECG-In automated comparison with ECG of 02-JAN-2020 13:21,-No significant change was found- Robert Carlin- CT UP EXTREM W/O CONT [id number] 08:44:00 Name: RENETTA ORELLANA [facility] : 1950 Age/S: 70 / M [address] [facility] Unit #: [id number] Loc: [place] [address] Phys: Monae Irvin DO Acct: [id number] Di s Date: Status: REG CLI PHONE #: Exam Date: 05/03/2020828 FAX #: Reason: PAIN EXAMS: CPT CODE: [id number] [place] EXTREM W/[place] [address] HISTORY: Left shoulder pa in. COMPARISON: None available. Location: [facility]. Severely narrowed glenohumeral joints especially inferiorly with near complete loss of joint space. Subchondral sclerosis. Inferior marginal osteophytes from the humeral head and from both inferior and superior ma rgins of the glenoid. Severely narrowed AC joint. Preserved subacr omial and subdeltoid space. No obvious joint fluid is visible. No erosive or destructive changes are noted. These findings suggest osteoarthritis. A cromion is type I in configuration and is not downsloping. N o pathologic axillary adenopathy is noted. Visualized mediastinum is unrem arkable. Visualized lungs are clear. 2.8 cm subcoracoid bursal fluid colle ction. IMPRESSION: No acute fracture or disloc ation. Advanced osteoarthritis with severely narrowed glenohumeral joint and AC joints with marginal osteophytes. No erosive or destructive mosley ge. Preserved subacromion and subdeltoid space. No joint fluid. Unremark able visualized musculature. 2.8 mm subcoracoid bursal fluid collection. Correlate with MRI scan as clinically indicated at this is much more se nsitive. at 0844 Reported and signed by: Stanislav Dumont M.D. CC: Ganga Irvin DO Technologist:Meño Shah RT(R),(MR),(CT) CTDI: DLP: Trnscb Date/Time: 0 (0844) t.SDR.TH4 Orig Print D/T: S: 05/03/2020 (0832) PAGE 1 Signed Report Thyroid Panel With [id number] 16:04:00* Test Item Value Reference Range Interpretation Comments T3 uptake (test code = 3050-2) 26 % 22-35 T4 (test code = 3026-2) 8.8 4.9- 10.5 mcg/dL Free T4 index (test code = 11325-6) 2.3 1.4-3.8 TSH (test code = 3016-3) 1.31 0.40- 4.50 mIU/L DALE (test code = DALE) FASTING:YESFASTING: YES RAC (test code = RAC) Performing Organization Info rmation: Site ID: [id number] Name: [facility] Address: [address] [place] [phone] Director: Flynn WALLACE) advanced lipid panel and inflammation panel 2020-01-08 16:04:00* Test Item Value Reference Range Interpretation Comments Cholesterol, total (test code = 2093-3) 174 mg/dL <200 HDL cholesterol (test code = 2085-9) 62 mg/dL > OR = 40 Triglycerides (test code = 2571-8) 157 mg/dL <150 H LDL cholesterol calculated (test code = 15460-5) 87 <100 mg/dL (calc) Desirable range <100 mg/dL for primary prevention; <70 mg/dLfor patients with CHD or diabetic patients with > or = 2 CHDrisk factors. LDL-C is now calculated using the Patricecalculation, which is a validated novel method providingbetter accuracy than the Friedewald equation in theestimation of LDL-C. Ilia DEL VALLE et al. FREDY. 2013;310(19):4467-3911 For additional information, please refer tohttp://education.Uniphore/faq/ZEQ128(This link is being provided for informational/educationalpurposes only.) Cholesterol/HDL ratio (test code = 9830-1) 2.8 <5.0 calc Non-HDL cholesterol (test code = 03316-0) 112 <130 mg/dL ( calc) For patients with diabetes plus 1 major ASCVD risk factor,treating to a non-HDL-C goal of <100 mg/dL (LDL-C of <70mg/dL) is considered a therapeutic option. LDL particle number (test code = 38030-7) 1159 nmol/L <1,138 H Risk: Optimal <1138; Moderate 7322-3278; High >1409 LDL small (test code = 60918-4) 189 nmol/L <142 H Risk: Optimal <142; Moderate 142-219; High >219 LDL medium (test code = 211) 239 nmol/L <215 H Risk: Optimal <215; Moderate 215-301; High >301 HDL large (test code = 66302-5) 5399 nmol/L >6,729 L Risk: Optimal >6729; Moderate 7524-5719; High <5353 LDL density pattern (test code = 39049-8) B A Pattern A Risk: Optimal Pattern A; High Pattern B LDL peak size (test code = 49577-9) 215.6 >222.9 Angstrom L Risk: Optimal >222.9; Moderate 222.9-217.4; High <217.4 Adult cardiovascular event risk category cut points(optimal, moderate, high) are based on an adult [place].reference population plus two large cohort studypopulations. Association between lipoprotein subfractionsand cardiovascular events is based on Sofia et al. ATVB.2009;29:1975. For additional information, please refer tohttp://education. Uniphore/faq/VRD892(This link is being provided for informational/educationalpurposes only.) This test was developed and its analytical performancecharacteristics have been determined by [facility]. It has not beencleared or approved by FDA. This assay has been validatedpursuant to the CLIA regulations and is used for clinicalpurposes. Apolipoprotein B (test code = 1884-6) 81 mg/dL Reference Range: <90 Risk Category:Optimal <90Moderate 90-119High > or = 120 Cardiovascular event risk category cut points (optimal,moderate, high) are based on National Lipid Associationrecommendations - Clarisa TA et al. J of Clin Lipid.2015;9:129-169 and Guadalupe ALATORRE et al. Endocr Pract.2017;23(Suppl 2):1-87. Lipoprotein (a) (test code = 78007-8) 48 nmol/L <75 Risk: Optimal < 75 nmol/L; Moderate 75-125 nmol/L; High >125 nmol/L Cardiovascular event risk category cut points (optimal,moderate, high) are based on Carina SHAHC2017;69:692-711. CRP, high sensitivity (test code = 30033-8) 0.7 mg/L Optimal <1.0Guadalupe ALATORRE et al. Endocr Pract.2017;23(Suppl 2):1-87. For Ages > 17 Years: hs-CRP mg/L Risk According to AHA/CDC Guidelines <1.0 Lower Relative Cardiovascular Risk. 1.0-3.0 Average Relative Cardiovascular Risk 3.1-10.0 Higher Relative Cardiovascular Risk. Consider retesting in 1 to 2 weeks to exclude a benign transient elevation in the baseline CRP value secondary to infection or inflammation. >10.0 Persistent elevations upon retesting, may be associated with infection and inflammation. Lp-PLA2 (test code = 34959-4) 98 nmol/min/mL <=123 Risk: Optimal <=123 nmol/min/mL; High >123 nmol/min/mL. This test was developed and its analytical performancecharacteristics have been determined by [facility]. It has not beencleared or approved by FDA. This assay has been validatedpursuant to the CLIA regulations and is used for clinicalpurposes. DALE (test code = DALE) FASTING:YESFASTING: YES RAC (test code = RAC) Performing Organization Info rmation: Site ID: [id number] Name: [facility], Address: [address] [place] [phone] Director: Deepa Glover MD,PhD,KOURTNEY Lab Interpretation (test code = 69099-0) Abnormal Jones MethodistINSULIN, INTACT, LC/MS/[id number] 16:04:00* Test Item Value Reference Range Interpretation Comments Insulin,intact,lc/ms/ms (test code = 6104) 8 < OR = 16 u IU/mL Insulin concentration can be converted to pmol/L by applyingthe conversion factor: 1 uIU/mL = 5.97 pmol/L For additional information, please refer tohttp://education.Uniphore/faq/PWH183(This link is being provided for informational/educationalpurposes only.) This test was developed and its analytical performancecharacteristics have been determined by [facility]. It has not beencleared or approved by FDA. This assay has been validatedpursuant to the CLIA regulations and is used for clinicalpurposes. DALE (test code = DALE) FASTING:YESFASTING: YES RAC (test code = RAC) Performing Organization Info rmation: Site ID: [id number] Name: [facility], Address: [address] [place] [phone] Director: Deepa Glover MD,PhD,KOURTNEY CarlinC-peptide, LC/MS/MS and IR [id number] 16:04:00* Test Item Value Reference Range Interpretation Comments C-peptide (test code = 1986-05) 1.77 ng/mL 0.68-2.16 Insulin resistance score (test code = 3392) 29 < OR = 66 Insulin Sensitive < 33; Impaired Insulin Sensitivity 33-66;Insulin Resistant >66 A score below 33 is optimal. The insulin resistance scorecorrelates with steady state glucose levels achieved duringan insulin suppression test, a standard research test forinsulin resistance. The score is based on insulin andC-peptide results (João F, Isidro D, Jorge FIGUEROA, et al.Insulin resistance probability scores for apparently healthyindividuals. J Endocr Soc. In press). For additional information, please refer tohttp://education.Uniphore/faq/YBC826(This link is being provided for informational/educationalpurposes only.) This test was developed and its analytical performancecharacteristics have been determined by [facility]. It has not beencleared or approved by FDA. This assay has been validatedpursuant to the CLIA regulations and is used for clinicalpurposes. DALE (test code = DALE) FASTING:YESFASTING: YES RAC (test code = RAC) Performing Organization Info rmation: Site ID: [id number] Name: [facility], Address: [address] [place] [phone] Director: Deepa Glover MD,PhD,KOURTNEY Carlin
--- NOTE | 2020-08-12 09:50 | NUR ---
Received report from [facility] PACU. Pt arrived on floor via stretcher. Pt c/o pain 04/22. Bed in its lowest position. Call patel within reach. Advised pt would look into something in the orders for pain.
[2020-08-12] MEDS: HYDROCODONE/APAP 5MG-325MG TAB PO PRN ×2 (10:22→16:35)
[2020-08-12 10:30] VITALS: BP 136/73
[2020-08-12] MEDS: SODIUM CHLORIDE 0.9% 1000ML 1,000 ML IV SCH ×2 (10:30→18:30)
--- NOTE | 2020-08-12 10:44 | Diagnostic Imaging Report ---
EXAMINATION: SHOULDER LEFT 1 VIEW INDICATION: Postoperative COMPARISON: None FINDINGS: Portable radiographs of the left shoulder demonstrate immediate postoperative findings of left shoulder replacement with hardware components intact. No unexpected fracture. Alignment appears anatomic. Small amount of postoperative soft tissue emphysema. Surgical skin shon in place. EKG leads overlie the chest. Mild patchy opacities at the left lung base, most likely subsegmental atelectasis. IMPRESSION: Anatomic alignment status post left total shoulder replacement. Signed by: Ryan Rondon MD on 08/12/2020 10:40 AM
[2020-08-12] MEDS: ACETAMINOPHEN 1000 MG/100 ML IV PRN ×2 (11:25→21:27)
[2020-08-12] MEDS ORDERED: DEXAMETHASONE SOD PHOS INJ 4 MG/ML VIAL ONE (11:29)
[2020-08-12] MEDS ORDERED: PROPOFOL IV EMULSION 10 MG/ML 20 ML VIAL ONE (11:29)
[2020-08-12] MEDS ORDERED: ONDANSETRON HCL INJ 2MG/ML 2ML 2 MG/ML VIAL ONE (11:29)
[2020-08-12] MEDS ORDERED: LIDOCAINE HCL 2% JELLY 5 ML TUBE ONE (11:29)
[2020-08-12] MEDS ORDERED: MIDAZOLAM HCL 2 MG/2 ML VIAL ONE (11:29)
[2020-08-12] MEDS ORDERED: SEVOFLURANE INHAL SOLN 250 ML PEN BTL ONE (11:29)
[2020-08-12] MEDS ORDERED: LIDOCAINE HCL 2% LOCAL INJ 5 ML SDV VIAL INJ ONE (11:29)
[2020-08-12] MEDS ORDERED: EPHEDRINE SULFATE INJ 50 MG/ML VIAL ONE (11:29)
[2020-08-12] MEDS ORDERED: ROCURONIUM BROMIDE 10 MG/ML 5ML VIAL IV ONE (11:29)
[2020-08-12 12:03] VITALS: BP 160/88
[2020-08-12] MEDS: CEFAZOLIN SOD 1 GM/NS 50ML 50 ML IV SCH ×2 (12:52→21:12)
--- NOTE | 2020-08-12 12:52 | NUR ---
Discontinuing PT services since patient is Mod i in functional mobility.Thank you Addendum: 08/12/20 at 1253 by Scott werner PT Amended: Links added.
[2020-08-12 13:00] VITALS: BP 160/88
[2020-08-12] MEDS: ASPIRIN 325 MG TAB PO SCH ×2 (13:01→16:35)
[2020-08-12] MEDS: CELECOXIB 100 MG CAP PO SCH ×2 (13:01→16:35)
[2020-08-12 15:36] VITALS: BP 155/70
[2020-08-12] MEDS ORDERED: ROPIVACAINE 0.5% 5 MG/ML 30 ML SDV ONE (18:01)
[2020-08-12] MEDS ORDERED: LIDOCAINE 2%/ EPINEPHRINE 20ML MDV ONE (18:01)
--- NOTE | 2020-08-12 19:00 | NUR ---
Report given to on coming nurse. Pt lying in bed semi-fowlers position and no apparent distress. Bed in its lowest position. Call patel within reach.
--- NOTE | 2020-08-12 19:29 | NUR ---
WALKING ROUNDS PERFORMED, RECEIVED PT LAYING SEMI FOWLERS IN BED, AAOX3, RR EVEN AND NON-LABORED, ON ROOM AIR. NO S/SX OF DISTRESS NOTED. DRESSING TO (L) SHOULDER CDI WITH (L) ARM IN SLING IMMOBILIZER. LEFT PT LAYING SEMI FOWLERS IN BED, BED IN LOW LOCKED POSITION, SIDE RAILS UPX2, CALL LIGHT AND PHONE WITHIN REACH.
[2020-08-12 20:00] VITALS: BP 116/71
[2020-08-12] MEDS: CEPACOL SORE THROAT LOZENGES PO PRN ×2 (21:17→23:24)
[2020-08-12 22:07] VITALS: BP 116/71
[2020-08-13] VITALS: BP 123/70
[2020-08-13] MEDS: HYDROCODONE/APAP 5MG-325MG TAB PO PRN ×2 (03:35→08:22)
[2020-08-13 04:00] VITALS: BP 109/60
[2020-08-13] MEDS: SODIUM CHLORIDE 0.9% 1000ML 1,000 ML IV SCH (04:30)
[2020-08-13 05:20] LABS: HEMATOCRIT 37.6 % (38.2-49.6); HEMOGLOBIN 12.7 g/dL (14.0-18.0)
--- NOTE | 2020-08-13 05:24 | Consultation ---
DATE OF CONSULTATION: HISTORY OF PRESENT ILLNESS: The patient is status post left shoulder arthroplasty, who is doing well postoperatively with minimal pain. Denies any fever, chills, nausea, vomiting, headache, shortness of breath, or chest pain on review of systems. PAST MEDICAL HISTORY: Significant for hypertension, hypothyroidism, hyperlipidemia. MEDICATIONS: See MAR. ALLERGIES: NONE. SOCIAL HISTORY: Nonsmoker, nondrinker. , lives at home. FAMILY HISTORY: Noncontributory. PHYSICAL EXAMINATION: VITAL SIGNS: Temperature 97.9, pulse 60, blood pressure 130/76, sats 97% on room air. GENERAL: No apparent distress, lying in bed. NECK: Supple. No lymphadenopathy. CARDIOVASCULAR: Regular rate and rhythm. LUNGS: Clear to auscultation bilaterally. ABDOMEN: Good bowel sounds. Soft, nontender. EXTREMITIES: No clubbing, cyanosis. NEUROLOGIC: Nonfocal. He has cochlear implant on the right side. The left shoulder is in a brace. ASSESSMENT AND PLAN: 1. Left shoulder pain. We will continue with postoperative care. 2. Anemia. We will check CBC. 3. Hypertension. We will continue with current care and monitoring of the blood pressure. 4. Hypothyroidism. We will continue with his thyroid medicine. 5. Hyperlipidemia. We will continue with his cholesterol medicine. Please see hospital chart for full details. MD JHONNY Larsen/CHIQUITA /[id number]
[2020-08-13] MEDS: CEFAZOLIN SOD 1 GM/NS 50ML 50 ML IV SCH (05:26)
[2020-08-13] MEDS ORDERED: LEVOTHYROXINE SODIUM 125 MCG TAB PO SCH (06:30)
--- NOTE | 2020-08-13 07:03 | NUR ---
Received report from off going nurse. Pt lying in bed awake and no apparent distress. Bed in its lowest position and call patel within reach.
[2020-08-13 07:47] VITALS: BP 115/66
[2020-08-13] MEDS: ASPIRIN 325 MG TAB PO SCH (08:22)
[2020-08-13] MEDS: CELECOXIB 100 MG CAP PO SCH (08:22)
[2020-08-13 08:44] VITALS: BP 115/66
[2020-08-13] MEDS ORDERED: AZATHIOPRINE 50 MG TAB PO SCH (09:00)
[2020-08-13] MEDS ORDERED: METOPROLOL SUCCINATE 50 MG TAB XL PO SCH (09:00)
[2020-08-13] MEDS: ACETAMINOPHEN 1000 MG/100 ML IV PRN (10:27)
[2020-08-13 11:45] VITALS: BP 133/69
[2020-08-13] MEDS ORDERED: ONDANSETRON HCL 4 MG ORAL DISINTEGRATING TAB PO PRN (13:15)
--- NOTE | 2020-08-13 13:15 | NUR ---
Sterile dressing change to L shoulder. Cleansed area with sterile normal saline. Scant amount of blood on original surgical dressing. Clean dressing applied (extra absorbent abdominal pad) and secured with Medline tape. Pt tolerated well.
--- NOTE | 2020-08-13 13:32 | NUR ---
Pt walked off floor with assigned nurse. Pt had a steady gate and tolerated walk well. Pt in no apparent distress and denies pain 0/10.
[2020-08-13] MEDS ORDERED: CELECOXIB 200 MG CAP PO SCH (17:00)
[2020-08-13] MEDS ORDERED: ATORVASTATIN 20 MG TAB PO SCH (21:00)
== END 2020-08-13 13:32 | disposition home or self-care (01) ==
LOC: OR 05:24 → PACU V 08:18 → MED/SURG 09:50
PROVIDERS: ADMIT Specialist; ATTEND Specialist
DX: M19.012 Primary osteoarthritis, left shoulder (principal); D64.9 Anemia, unspecified; E03.9 Hypothyroidism, unspecified; E78.5 Hyperlipidemia, unspecified; Z20.828 Contact with and (suspected) exposure to other viral communicable diseases; I10 Essential (primary) hypertension
CPT/HCPCS: 23470; 36415 ×2; 64450; 73020; 80048; 85014; 85018; 97161; 97530; C1776; G0378 ×2; J0131 ×2; J0690 ×2; J1100; J1885; J2001 ×3; J2250; J2405; J2704; J2795; J3010; J3370; J7030; J7040; J7500

== ENCOUNTER 2020-10-11 09:54 | Outpatient (RCR) | payer OTHER | END 2020-10-13 | LOC: PT 09:54 | PROVIDERS: ATTEND Specialist | DX: M25.512 Pain in left shoulder (principal); M25.612 Stiffness of left shoulder, not elsewhere classified; M62.81 Muscle weakness (generalized) ==

== ENCOUNTER 2020-11-08 09:56 | Outpatient (RCR) | payer OTHER | END 2020-11-10 | LOC: PT 09:56 | PROVIDERS: ATTEND Specialist | DX: M25.512 Pain in left shoulder (principal); M25.612 Stiffness of left shoulder, not elsewhere classified; M62.81 Muscle weakness (generalized) | CPT/HCPCS: 97139 ==

== ENCOUNTER 2020-11-15 09:47 | Outpatient (RCR) | payer MEDICARE, OTHER | END 2020-12-11 | LOC: PT 09:47 | PROVIDERS: ATTEND Specialist | DX: M25.512 Pain in left shoulder (principal); M25.612 Stiffness of left shoulder, not elsewhere classified; M62.81 Muscle weakness (generalized) ==